=== PATIENT | female | born 1970 | race Caucasian/White ===

== ENCOUNTER 2019-07-18 10:52 | Emergency (ER) | payer MEDICAID ==
[~2019-07-18] VITALS: Ht 167.6 cm; Wt 84.0 kg
[2019-07-18] MEDS ORDERED: KETOROLAC 60MG/2ML VIAL IM STA (11:27)
[2019-07-18 11:48] LABS: CLARITY URINE CLEAR (CLEAR); COLOR URINE YELLOW (YELLOW); KETONES URINE NEGATIVE (NEGATIVE); LEUKOCYTE ESTERASE URINE TRACE (NEGATIVE); NITRITE URINE NEGATIVE (NEGATIVE); OCCULT BLOOD URINE NEGATIVE (NEGATIVE); PH URINE 5.5 (4.5-8.0); PROTEIN URINE NEGATIVE (NEGATIVE); SPECIFIC GRAVITY URINE 1.027 (1.005-1.030)
[2019-07-18] MEDS ORDERED: ACETAMINOPHEN WITH CODEINE 300/30MG TABLET PO STA (12:35)
[2019-07-18 13:10] VITALS: BP 124/62
== END 2019-07-18 13:11 | disposition home or self-care (01) ==
LOC: ER 10:52
DX: S39.012A Strain of muscle, fascia and tendon of lower back, initial encounter (principal); Z91.013 Allergy to seafood; W01.0XXA Fall on same level from slipping, tripping and stumbling without subsequent striking against object, initial encounter; Y93.E1 Activity, personal bathing and showering; Y92.89 Other specified places as the place of occurrence of the external cause; Y99.8 Other external cause status
CPT/HCPCS: 72100; 81003; 81025; 96374; 99284; J1885